=== PATIENT | female | born 1995 | race Caucasian/White ===

== ENCOUNTER 2017-06-04 22:38 | Emergency (ER) | payer MEDICAID ==
[2017-06-05 03:41] VITALS: BP 111/70
== END 2017-06-05 03:41 | disposition home or self-care (01) ==
LOC: ED 22:38
DX: J02.0 Streptococcal pharyngitis (principal)
CPT/HCPCS: J0561

== ENCOUNTER 2017-06-06 11:27 | Emergency (ER) | payer MEDICAID ==
[2017-06-06 13:45] VITALS: BP 127/72
== END 2017-06-06 14:01 | disposition home or self-care (01) ==
LOC: ED 11:27
DX: J03.90 Acute tonsillitis, unspecified (principal); Z79.1 Long term (current) use of non-steroidal anti-inflammatories (NSAID)